=== PATIENT | male | born 1955 | race Caucasian/White ===

== ENCOUNTER 2019-04-22 14:46 | Inpatient (IN) | payer OTHER ==
[~2019-04-22] VITALS: Ht 170.2 cm; Wt 73.5 kg
[2019-04-22 14:52] VITALS: Ht 170.2 cm; Wt 73.5 kg
[2019-04-22 16:29] LABS: microscopic required? YES; urine erythrocyte 3+ (NEGATIVE)
[2019-04-22 16:51] LABS: BASOPHIL % 0.2 % (0-2); PLATELET COUNT 146 x10^3mcL (130-400)
[2019-04-22 16:58] LABS: RED CELL DISTRIBUTION WIDTH 17.3 % (11.5-14.5)
[2019-04-22 17:01] LABS: ALKALINE PHOSPHATASE 133 U/L (46-116); ALT/SGPT 53 U/L (16-63); AST/SGOT 15 U/L (15-37); BILIRUBIN TOTAL 0.34 mg/dL (0.20-1.00); CALCIUM 8.1 mg/dL (8.5-10.1); CHLORIDE SERUM 126 mmol/L (98-107); CREATININE SERUM 2.5 mg/dL (0.7-1.3); GFR1 28 mL/min; GLUCOSE SERUM 245 mg/dL (74-106); MAGNESIUM 2.6 mg/dL (1.8-2.4); SODIUM SERUM 151 mmol/L (136-145)
[2019-04-22 17:02] LABS: ALBUMIN 2.4 g/dL (3.4-5.0); CARBON DIOXIDE 9.4 mmol/L (21-32); POTASSIUM SERUM 6.6 mmol/L (3.5-5.1)
[2019-04-22 19:40] LABS: ALBUMIN 2.4 g/dL (3.4-5.0); BILIRUBIN TOTAL 0.3 mg/dL (0.20-1.00); CALCIUM 8.1 mg/dL (8.5-10.1); CARBON DIOXIDE 12.7 mmol/L (21-32); CREATININE SERUM 2.5 mg/dL (0.7-1.3); TOTAL PROTEIN, SERUM 5.9 g/dL (6.4-8.2)
[2019-04-22 19:41] LABS: POTASSIUM SERUM 5.6 mmol/L (3.5-5.1)
[2019-04-22 22:15] VITALS: BP 115/66
[2019-04-23 04:52] VITALS: BP 121/75
[2019-04-23 06:00] VITALS: BP 115/66
[2019-04-23 06:22] LABS: CALCIUM 8.3 mg/dL (8.5-10.1); CARBON DIOXIDE 15.2 mmol/L (21-32); CREATININE SERUM 2.5 mg/dL (0.7-1.3); MAGNESIUM 2.5 mg/dL (1.8-2.4); PHOSPHOROUS 6.2 mg/dL (2.5-4.9)
[2019-04-23 06:35] LABS: BASOPHIL % 0.1 % (0-2); PLATELET COUNT 142 x10^3mcL (130-400)
[2019-04-23 08:50] VITALS: BP 147/72
[2019-04-23 12:46] VITALS: BP 134/75
[2019-04-23 16:00] VITALS: BP 162/95
[2019-04-23 20:20] VITALS: BP 99/63
[2019-04-24 05:26] VITALS: BP 113/68
[2019-04-24 06:29] LABS: BASOPHIL % 0.2 % (0-2)
[2019-04-24 06:46] LABS: CALCIUM 7.7 mg/dL (8.5-10.1); CARBON DIOXIDE 17.2 mmol/L (21-32); CREATININE SERUM 2.5 mg/dL (0.7-1.3); MAGNESIUM 2.2 mg/dL (1.8-2.4); POTASSIUM SERUM 4.1 mmol/L (3.5-5.1)
[2019-04-24 07:07] LABS: PLATELET COUNT 126 x10^3mcL (130-400); RED CELL DISTRIBUTION WIDTH 17.8 % (11.5-14.5)
[2019-04-24 09:05] VITALS: BP 135/82
[2019-04-24 12:23] VITALS: BP 128/74
[2019-04-24 17:15] VITALS: BP 107/62
[2019-04-24 21:53] VITALS: BP 114/67
[2019-04-25 05:52] VITALS: BP 117/69
[2019-04-25 06:45] LABS: BASOPHIL % 0.1 % (0-2)
[2019-04-25 06:51] LABS: PLATELET COUNT 125 x10^3mcL (130-400); RED CELL DISTRIBUTION WIDTH 19.3 % (11.5-14.5)
[2019-04-25 07:13] LABS: CALCIUM 7.7 mg/dL (8.5-10.1); CARBON DIOXIDE 19.7 mmol/L (21-32); CREATININE SERUM 2.4 mg/dL (0.7-1.3); POTASSIUM SERUM 3.8 mmol/L (3.5-5.1)
[2019-04-25 07:25] LABS: IRON 24 ug/dL (65-170); TOTAL IRON BINDING CAPACITY 156 ug/dL (250-450)
[2019-04-25 08:44] VITALS: BP 119/65
[2019-04-25 12:38] VITALS: BP 114/69
[2019-04-25 16:45] VITALS: BP 113/56
[2019-04-25 22:04] VITALS: BP 142/81
[2019-04-26 05:54] VITALS: BP 121/75
[2019-04-26 06:34] LABS: BASOPHIL % 0.3 % (0-2)
[2019-04-26 06:40] LABS: PLATELET COUNT 115 x10^3mcL (130-400); RED CELL DISTRIBUTION WIDTH 18.8 % (11.5-14.5)
[2019-04-26 06:47] LABS: BILIRUBIN DIRECT 0.2 mg/dL (0.0-0.2); BILIRUBIN TOTAL 0.42 mg/dL (0.20-1.00); CALCIUM 7.8 mg/dL (8.5-10.1); CARBON DIOXIDE 22.8 mmol/L (21-32); CREATININE SERUM 2.4 mg/dL (0.7-1.3); POTASSIUM SERUM 3.6 mmol/L (3.5-5.1)
[2019-04-26 07:11] LABS: ALBUMIN 2.4 g/dL (3.4-5.0)
[2019-04-26 10:00] VITALS: BP 127/74
[2019-04-26 10:34] VITALS: BP 127/74
[2019-04-26 12:11] VITALS: BP 116/73
[2019-04-26 18:37] VITALS: BP 116/70
[2019-04-26 20:20] VITALS: BP 118/73
[2019-04-27 05:52] VITALS: BP 130/76
[2019-04-27 08:44] LABS: CALCIUM 7.7 mg/dL (8.5-10.1); CARBON DIOXIDE 23.7 mmol/L (21-32); CREATININE SERUM 2.5 mg/dL (0.7-1.3); POTASSIUM SERUM 3.5 mmol/L (3.5-5.1)
[2019-04-27 08:58] LABS: BASOPHIL % 0.9 % (0-2)
[2019-04-27 09:00] VITALS: BP 108/60
[2019-04-27 09:35] LABS: PLATELET COUNT 105 x10^3mcL (130-400); RED CELL DISTRIBUTION WIDTH 18.2 % (11.5-14.5)
[2019-04-27 13:46] VITALS: BP 126/76
[2019-04-27 15:04] VITALS: BP 126/76
[2019-04-27] MEDS ORDERED: FLOMAX0.4 MG PO (15:56)
[2019-04-27] MEDS ORDERED: AMLODIPINE BESY10 M2 PO (15:56)
[2019-04-27] MEDS ORDERED: CARVEDILOL6.25 M1 PO (15:57)
[2019-04-27] MEDS ORDERED: GLIPIZIDE2.5 M1 PO (15:57)
[2019-04-27] MEDS ORDERED: FERROUS SULFAT325 M2 PO (15:59)
[2019-04-27 16:28] VITALS: BP 132/71
[2019-04-27 21:09] VITALS: BP 121/73
== END 2019-04-27 21:40 | DRG 871 ==
LOC: ED 14:46 → IC 19:04 → ED 19:04 → EDBEDREQ 19:06 → DU 19:27
PROVIDERS: Emergency Medicine; Internal Medicine; Internal Medicine Nephrology; Internal Medicine Pulmonary Disease; ADMIT Internal Medicine Nephrology
DX: A41.9 Sepsis, unspecified organism (principal); G93.41 Metabolic encephalopathy; N39.0 Urinary tract infection, site not specified; E87.0 Hyperosmolality and hypernatremia; L03.314 Cellulitis of groin; N17.9 Acute kidney failure, unspecified; E87.2 Acidosis; E44.0 Moderate protein-calorie malnutrition; Z16.24 Resistance to multiple antibiotics; B96.4 Proteus (mirabilis) (morganii) as the cause of diseases classified elsewhere; R80.9 Proteinuria, unspecified; N49.2 Inflammatory disorders of scrotum; E87.5 Hyperkalemia; R54 Age-related physical debility; I49.1 Atrial premature depolarization; I49.3 Ventricular premature depolarization; I12.9 Hypertensive chronic kidney disease with stage 1 through stage 4 chronic kidney disease, or unspecified chronic kidney disease; N18.9 Chronic kidney disease, unspecified; D64.9 Anemia, unspecified; N40.0 Benign prostatic hyperplasia without lower urinary tract symptoms; Z68.22 Body mass index [BMI] 22.0-22.9, adult
CPT/HCPCS: 36600; 82962; 83880; 92526-GN; 92610-GN; 97116-GP; 97530-GP; G0378; G0480; J0696; J1644; J1815; J1940; J3370; J3490; J7030; J7060; J7070; J7620; Q0092